=== PATIENT | male | born 1975 | race Two or more races ===

== ENCOUNTER 2023-05-25 01:34 | Observation (INO) ==
[2023-05-25] MEDS ORDERED: Lactated Ringers 1000 ml BAG 1,000 ML IV ONE ×2 (02:01→03:42)
[2023-05-25 03:27] LABS: Hematocrit 41.5 % (38-53); Mean Corpuscular Hemoglobin 29.8 pg (27-33); Mean Corpuscular Hgb Conc 33.7 g/dL (31-36); Mean Corpuscular Volume 88.6 fL (80-97); Red Blood Count 4.69 10^6/uL (4.06-5.63); Red Cell Distribution Width 14.3 % (12-17); White Blood Count 18.1 10^3/uL (3.6-10.2)
[2023-05-25 03:28] LABS: INR 1.21 (0.83-1.13)
[2023-05-25 03:38] LABS: ALT 24 U/L (7-52); AST 24 U/L (13-39); Albumin/Globulin Ratio 1.5 (1-3); Alkaline Phosphatase 100 U/L (35-149); Anion Gap 7 mmol/L (2-16); Blood Urea Nitrogen 14 mg/dL (6-24); CO2 Carbon Dioxide 25 mmol/L (22-32); Calcium 8.8 mg/dL (8.6-10.3); Chloride 102 mmol/L (101-111); Creatine Kinase 114 U/L (10-223); Creatinine, Serum 1.05 mg/dL (0.67-1.17); Globulin 2.7 g/dL (2-4); Glucose 98 mg/dL (70-100); Potassium 3.7 mmol/L (3.5-5.0); Sodium 134 mmol/L (135-145); Total Bilirubin 0.7 mg/dL (0.2-1.0); Total Protein 6.7 g/dL (6.4-8.9); eGFR CKD-EPI 88.7 (>60)
[2023-05-25 03:44] LABS: High Sens Troponin Baseline < 3 pg/mL (<20)
[2023-05-25 03:53] LABS: ABS Lymphocytes 0.3 10^3/uL (1.0-4.8); ABS Monocytes 0.7 10^3/uL (0.0-1.1); ABS Nucleated RBC 0.02 10^3/ul; Eosinophil % 0.3 %; Lymphocyte % 1.9 %; Mean Platelet Volume 8.8 fL (7.5-11.2); Nucleated Red Blood Cells % 0.1 %/100WBC (0.0-0.8); Platelet Count 262 10^3/uL (150-450)
[2023-05-25 04:34] LABS: Urine Appearance Clear; Urine Bilirubin Negative (Negative); Urine Blood Negative (Negative); Urine Color Yellow; Urine Glucose Negative (Negative); Urine Ketones Negative (Negative); Urine Nitrite Negative (Negative); Urine Protein Negative (Negative); Urine Specific Gravity 1.018 (1.002-1.030); Urine Urobilinogen Negative (Negative)
[2023-05-25] MEDS ORDERED: Iohexol 300 (CONTRAST) 10 ML SDV IV ONE ×2 (05:03→07:25)
[2023-05-25 05:50] LABS: High Sensitivity Troponin 1 Hr 3 pg/mL (<20)
[2023-05-25] MEDS ORDERED: Piperacillin/Tazobac 3.375 BAG 3.375 GM/100 ML BAG IV ONE (07:23)
[2023-05-25] MEDS ORDERED: methylPREDNISolone SOD SUCC 125 mg 2 ML VIAL IV ONE (07:44)
[2023-05-25] MEDS ORDERED: Vancomycin 1,000 MG in NS 0.9% 250 ml 250 ML IVPB ONE (08:14)
[2023-05-25] MEDS ORDERED: Albuterol HFA INHALER 8 gm MDI INH PRN (10:01)
[2023-05-25] MEDS ORDERED: Dextran 70/Hypromellose Tears Eye Drops 15 ml BTL (for Artificials Tears) BOTH EYES PRN (10:16)
[2023-05-25] MEDS: DULoxetine DR 60 mg CAP PO SCH (13:06)
[2023-05-25] MEDS: Enoxaparin 40 MG/0.4 ML SYR SUBCUT SCH (13:06)
[2023-05-25 13:57] LABS: HIV 4th Generation Nonreactive (Nonreactive)
[2023-05-25] MEDS ORDERED: Vancomycin per Pharmacy 1 EA NOTE FOLLOW UP SCH (16:35)
[2023-05-25] MEDS ORDERED: Zosyn per Pharmacy NOTE FOLLOW UP SCH (16:35)
[2023-05-25] MEDS ORDERED: ZOSYN 3.375 GM x ONE DOSE over 30 miuntes IV (17:00)
[2023-05-25] MEDS: Mometasone 220 MCG MDI INH SCH ×2 (19:15→22:29)
[2023-05-25] MEDS ORDERED: Vancomycin 1000 MG in NS 0.9% 250 ML IVPB SCH (20:30)
[2023-05-25] MEDS: Vancomycin 1000 MG in NS 0.9% 250 ML IVPB SCH (21:52)
[2023-05-25] MEDS ORDERED: ZOSYN 3.375 GM Q8H per EXTENDED INFUSION IV SCH (22:00)
[2023-05-25] MEDS ORDERED: BENZOCAINE/MENTHOL (ORAJEL)20% 1 APPLIC TOP.GEL TOPICAL PRN (22:48)
[2023-05-26] MEDS: ZOSYN 3.375 GM Q8H per EXTENDED INFUSION IV SCH ×2 (00:28→12:28)
[2023-05-26 06:25] LABS: ABS Eosinophils 0.1 10^3/uL (0.0-0.5); ABS Lymphocytes 1.5 10^3/uL (1.0-4.8); ABS Nucleated RBC 0.01 10^3/ul; Eosinophil % 0.3 %; Hematocrit 38.3 % (38-53); Hemoglobin 12.9 g/dL (13.2-16.3); Lymphocyte % 9.6 %; Mean Corpuscular Hemoglobin 29.9 pg (27-33); Mean Corpuscular Hgb Conc 33.6 g/dL (31-36); Mean Corpuscular Volume 88.8 fL (80-97); Mean Platelet Volume 8.8 fL (7.5-11.2); Platelet Count 259 10^3/uL (150-450); Red Blood Count 4.32 10^6/uL (4.06-5.63); Red Cell Distribution Width 14.3 % (12-17); White Blood Count 15.5 10^3/uL (3.6-10.2)
[2023-05-26 07:01] LABS: Calcium 8.9 mg/dL (8.6-10.3); Creatinine, Serum 1.09 mg/dL (0.67-1.17); Magnesium 2.3 mg/dL (1.9-2.7); eGFR CKD-EPI 84.8 (>60)
[2023-05-26] MEDS ORDERED: Carboxymethylcellulos 1% OPTH 1 AMP BOTH EYES PRN (08:44)
[2023-05-26] MEDS ORDERED: BENZOCAINE/MENTHOL (ORAJEL)20% 1 APPLIC TOP.GEL TOPICAL PRN (08:45)
[2023-05-26] MEDS: Enoxaparin 40 MG/0.4 ML SYR SUBCUT SCH (10:22)
[2023-05-26] MEDS: DULoxetine DR 60 mg CAP PO SCH ×2 (10:23→10:24)
[2023-05-26] MEDS: Vancomycin 1000 MG in NS 0.9% 250 ML IVPB SCH (10:23)
[2023-05-26 14:27] VITALS: BP 117/63
[2023-05-26] MEDS ORDERED: ZOSYN 3.375 GM Q8H per EXTENDED INFUSION IV SCH (20:30)
[2023-05-27] MEDS ORDERED: Vancomycin Trough Check NOTE FOLLOW UP ONE (08:00)
[2023-05-27 14:51] LABS: Anaplasma phagocytophilum Negative (Negative); B. miyamotoi PCR, B Negative (Negative); Babesia divergens/MO-1 Negative (Negative); Babesia ducani Negative (Negative); Ehrlichia chaffeensis Negative (Negative); Ehrlichia ewingii/canis Negative (Negative); Ehrlichia muris eauclairensis Negative (Negative)
[2023-05-28 22:54] LABS: IgG Immunoblot Negative (Negative); IgM Immunoblot Positive (Negative)
== END 2023-05-26 16:20 ==
LOC: ED 01:34 → EDHOLD 01:34 → SUATTDRO 09:11 → MEDTELE 18:06
PROVIDERS: ADMIT Internal Medicine; ATTEND Hospitalist